=== PATIENT | male | born 1995 | race Two or more races ===

== ENCOUNTER 2019-05-28 11:46 | Emergency (ER) | payer OTHER ==
--- NOTE | 2019-05-28 12:12 | ER Document Report ---
ED General - General Chief Complaint: Allergic Reaction Stated Complaint: POSSIBLE ALLERGIC REACTION Time Seen by Provider: 05/28/19 12:09 TRAVEL OUTSIDE OF THE [place] IN LAST 30 DAYS: No - HPI Patient complains to provider of: Rash Notes: Normally healthy young man presents with diffuse urticaria over his lower extremities upper extremity's. This is now his third day of intermittent symptoms. Patient has been seen at [facility] week times for allergic reaction started Wednesday he was treated symptoms resolve he would go home and they will start up again. Most recently he was discharged from that emergency department approximately 10 hours ago went home. Patient now has diffuse urticaria. Difficulty breathing. No mucosal involvement, no pain in genitals. Denies nausea or vomiting. No hypoxia. No history of allergic reactions. - Related Data Allergies/Adverse Reactions: No Known Allergies Allergy (Verified 05/28/19 11:47) Past Medical History - Social History Smoking Status: Unknown if Ever Smoked Family History: None Review of Systems - Review of Systems Notes: REVIEW OF SYSTEMS: CONSTITUTIONAL: -fevers, -chills EENT: -eye pain, -difficulty swallowing, -nasal congestion CARDIOVASCULAR: -chest pain, -syncope. RESPIRATORY: -cough, -SOB GASTROINTESTINAL: -abdominal pain, -nausea, -vomiting, -diarrhea GENITOURINARY: -dysuria, -hematuria MUSCULOSKELETAL: -back pain, -neck pain SKIN: Diffuse urticaria HEMATOLOGIC: -easy bruising or bleeding. LYMPHATIC: -swollen, enlarged glands. NEUROLOGICAL: -altered mental status or loss of consciousness, -headache, - neurologic symptoms PSYCHIATRIC: -anxiety, -depression. ALL OTHER SYSTEMS REVIEWED AND NEGATIVE. Physical Exam - Vital signs Vitals: Temp Pulse Resp BP Pulse Ox 98.7 F 120 H 16 102/71 98 05/28/19 11:48 05/28/19 11:48 05/28/19 11:48 05/28/19 11:48 05/28/19 11:48 - Notes Notes: PHYSICAL EXAMINATION: GENERAL: Well-appearing, well-nourished and in no acute distress. HEAD: Atraumatic, normocephalic. EYES: Pupils equal round and reactive to light, injected conjunctiva ENT: nares patent, oropharynx clear without exudates. Moist mucous membranes. NECK: Normal range of motion, supple without lymphadenopathy LUNGS: Breath sounds clear to auscultation bilaterally and equal. No wheezes rales or rhonchi. HEART: Regular rate and rhythm without murmurs ABDOMEN: Soft, nontender, normoactive bowel sounds. No guarding, no rebound. No masses appreciated. EXTREMITIES: Normal range of motion, no pitting or edema. No cyanosis. NEUROLOGICAL: Cranial nerves grossly intact. Normal speech, normal gait. Normal sensory and motor exams. PSYCH: Normal mood, normal affect. SKIN: Diffuse urticaria over his upper extremities lower extremities and abdomen. Course - Re-evaluation Re-evalutation: 05/28/19 12:11 Ill-appearing young man presents with profound urticaria. Concerning for possible anaphylaxis. 05/28/19 16:22 Patient given IV epinephrine, steroids, diphenhydramine, famotidine. Patient observed in the department for 2 hours. Pick there is no change in patient's rash. At this point decision made to obtain labs. Shows leukocytosis and bandemia. Could be secondary to recent doses of steroids. Consult [facility], there is no dermatology available. Consult [facility], they also state there is no collection analyst communications equipment supervisor. Consult [facility]. Able to speak with the collection analyst communications equipment supervisor there. Given the patient is afebrile. Is mainly mucosal involvement and conjunctiva no other mucosal involvement, no difficulty b reathing or nausea vomiting. They recommend patient given strict return precautions discharged home on hydroxyzine for the itching. They will see the patient outpatient in their clinic tomorrow. That clinic phone number is [phone]. I also provide all of the patient's contact information to the collection analyst. this patients cell number is [phone] She is given strict return precautions of vomiting difficulty breathing any skin sloughing fever or mucosal involvement it is paramount that he get to the emergency department quickly - Vital Signs Vital signs: Temp Pulse Resp BP Pulse Ox 98.7 F 120 H 22 H 126/57 H 100 05/28/19 11:48 05/28/19 11:48 05/28/19 16:01 05/28/19 16:01 05/28/19 16:01 - Laboratory Result Diagrams: 05/28/19 13:40 05/28/19 13:40 Laboratory results interpreted by me: 07/07/19 07/07/19 07/07/19 13:40 13:40 13:40 WBC 16.5 H Seg Neutrophils % 87.5 H Lymphocytes % 10.2 L Monocytes % 1.4 L Absolute Neutrophils 14.4 H Sodium 135.7 L C-React Prot High Sens > 15 H Total Protein 6.1 L Critical Care Note - Critical Care Note Total time excluding time spent on procedures (mins): 38 Discharge - Discharge Clinical Impression: Rash Disposition: HOME, SELF-CARE Instructions: Viral Rash ([facility]) Additional Instructions: Call Dermatology @ [facility] [phone] Prescriptions: Hydroxyzine HCl [Atarax 50 mg Tablet] 50 mg PO TID PRN #15 tablet PRN Reason:
[2019-05-28] MEDS ORDERED: FAMOTIDINE 20 MG TABLET PO ONE (12:23)
[2019-05-28] MEDS ORDERED: DIPHENHYDRAMINE HCL 50 MG CAPSULE PO ONE (12:23)
[2019-05-28] MEDS ORDERED: PREDNISONE 20 MG TABLET PO ONE (12:23)
[2019-05-28] MEDS ORDERED: EPINEPHRINE INJ/PF 1 MG/1 ML AMPULE IM ONE (12:23)
[2019-05-28 13:50] LABS: ABSOLUTE BASOPHILS # (AUTO) 0.1 10^3/uL (0.0-0.2); ABSOLUTE EOSINOPHILS # (AUTO) 0.1 10^3/uL (0.0-0.6); ABSOLUTE LYMPHOCYTES (AUTO) 1.7 10^3/uL (0.5-4.7); ABSOLUTE MONOCYTES (AUTO) 0.2 10^3/uL (0.1-1.4); ABSOLUTE NEUT (AUTO) 14.4 10^3/uL (1.7-8.2); BASOPHILS % (AUTO) 0.3 % (0-2); EOSINOPHILS % (AUTO) 0.6 % (0-6); HEMATOCRIT 43.9 % (37.9-51.0); HEMOGLOBIN 14.8 g/dL (13.5-17.0); LYMPHOCYTES % (AUTO) 10.2 % (13-45); MEAN CORPUSCULAR HEMOGLOBIN 29.3 pg (27.0-33.4); MEAN CORPUSCULAR HGB CONC 33.7 g/dL (32.0-36.0); MEAN CORPUSCULAR VOLUME 87 fl (80-97); MONOCYTES % (AUTO) 1.4 % (3-13); PLATELET COUNT 379 10^3/uL (150-450); RED BLOOD COUNT 5.04 10^6/uL (4.35-5.55); RED CELL DISTRIBUTION WIDTH 12.5 % (11.5-14.0); SEGMENTED NEUTROPHILS % (AUTO) 87.5 % (42-78); TOTAL CELLS COUNTED % (AUTO) 100 %; WHITE BLOOD COUNT 16.5 10^3/uL (4.0-10.5)
[2019-05-28 14:12] LABS: ALANINE AMINOTRANSFERASE 32 U/L (21-72); ALBUMIN 3.5 g/dL (3.5-5.0); ALKALINE PHOSPHATASE 54 U/L (38-126); ANION GAP 9 (5-19); ASPARTATE AMINO TRANSFERASE 49 U/L (17-59); BILIRUBIN,DIRECT 0.3 mg/dL (0.0-0.4); BILIRUBIN,TOTAL 0.9 mg/dL (0.2-1.3); BLOOD UREA NITROGEN 13 mg/dL (7-20); CALCIUM 8.8 mg/dL (8.4-10.2); CARBON DIOXIDE 26 mmol/L (22-30); CHLORIDE 101 mmol/L (98-107); GLUCOSE 108 mg/dL (75-110); POTASSIUM 4.3 mmol/L (3.6-5.0); SODIUM 135.7 mmol/L (137-145); TOTAL PROTEIN 6.1 g/dL (6.3-8.2)
[2019-05-28 14:37] LABS: ERYTHROCYTE SEDIMENTATION RATE 13 mm/hr (0-15)
[2019-05-28] MEDS ORDERED: NORMAL SALINE 1000 ML 1,000 ML IV ONE (15:09)
[2019-05-28] MEDS ORDERED: HYDROXYZINE HCL 10 MG TABLET PO ONE (15:13)
[2019-05-28 16:19] VITALS: BP 126/57
== END 2019-05-28 16:25 | disposition home or self-care (01) ==
LOC: ER 11:46
DX: L50.9 Urticaria, unspecified (principal); R06.00 Dyspnea, unspecified; D72.825 Bandemia
CPT/HCPCS: 99291; 96372; 96360; 36415; 85025; 85652; 80076; 80048; 86141; J0171; J7512; J7030

== ENCOUNTER 2019-05-29 01:10 | Emergency (ER) | payer OTHER ==
[2019-05-29] MEDS ORDERED: FAMOTIDINE INJ/PF 20 MG/2 ML SDV IV ONE (03:02)
--- NOTE | 2019-05-29 04:22 | RADIOLOGY REPORT (SQ) ---
EXAM DESCRIPTION: CT ABDOMEN PELVIS WITHOUT IV CONTRAST COMPLETED DATE/TME: 05/29/2019 03:02 CLINICAL HISTORY: 23 years Male, abdominal pain Comparison: None. Technique: No contrast. Coronal and sagittal reformat. This exam was performed according to our departmental dose-optimization program, which includes automated exposure control, adjustment of the mA and/or kV according to patient size and/or use of iterative reconstruction technique.[facility]: Dose Right [facility]: CareDose [facility]: Dose Right [facility]: Teradose 4D [facility]: [employer] D[employer]le LIMITATIONS: None Findings: Minimal free fluid at the right anterior pelvis. Appendix is not discerned. If there is clinical concern for possible appendicitis, recommend further evaluation with IV and oral contrast. Possible vicarious gallbladder contrast. No gross evidence of gallbladder inflammation or hepatobiliary obstruction. No bowel obstruction. No hydronephrosis or hydroureter. No renal/ureteral stone. No evidence of abdominal aortic aneurysm. Unenhanced lower thorax, abdominopelvic structures, and musculoskeleton appear otherwise grossly unremarkable. Impression: Minimal free fluid at the right anterior pelvis. Appendix is not discerned. Consider further CT evaluation or surveillance with IV and delayed oral contrast especially if there is clinical concern for possible appendicitis..
[2019-05-29] MEDS ORDERED: NORMAL SALINE 1000 ML 1,000 ML IV ONE (04:43)
[2019-05-29] MEDS ORDERED: FENTANYL CITRATE INJ/PF 100 MCG/2 ML AMPUL IV ONE (04:43)
--- NOTE | 2019-05-29 04:45 | ER Document Report ---
ED General - General Chief Complaint: Hives Stated Complaint: ABDOMINAL PAIN Time Seen by Provider: 05/29/19 02:50 Notes: Patient is a pleasant 23-year-old male who is been having hives-like rash and reaction now for several days. He was seen several days ago by physician and started prednisone. He said the steroids made his stomach hurt and therefore he stopped them. He then came to our ER yesterday and was seen by Dr. Roberto. Dr. tian did a work-up. He had normal ESR at that time. He did have a leukocytosis without bandemia. This is likely related to steroid use. He did consul and speak with dermatology at [facility] who requested the patient come to the outpatient clinic on Wednesday which is now today. Patient said he presented back to the ER because after receiving a steroid injection from our ED he still having abdominal pain again. He feels that the steroids themselves cause abdominal pain. He says that the rash has not worsened. He said he did take some Zyrtec which actually seemed to help the rash some. He denies any facial swelling. No tongue swelling. No difficulty breathing. No fevers. No vomiting or diarrhea. No other complaints at this time. No recent travel outside the country. TRAVEL OUTSIDE OF THE [place] IN LAST 30 DAYS: No - Related Data Allergies/Adverse Reactions: No Known Allergies Allergy (Verified 05/28/19 11:47) Past Medical History - Social History Smoking Status: Former Smoker Frequency of alcohol use: Occasional Drug Abuse: None Family History: None Patient has suicidal ideation: No Patient has homicidal ideation: No Renal/ Medical History: Denies: Hx Peritoneal Dialysis Review of Systems - Review of Systems Notes: My Normal Review Basic REVIEW OF SYSTEMS: CONSTITUTIONAL : Denies fever, chills, or sweats. Denies recent illness. EENT: Denies eye, ear, throat, or mouth pain or symptoms. Denies nasal or sinus congestion. CARDIOVASCULAR: Denies chest pain. RESPIRATORY: Denies cough, cold, or chest congestion. Denies shortness of breath, difficulty breathing, or wheezing. GASTROINTESTINAL: Central abdominal pain. Some nausea. No vomiting. GENITOURINARY: Denies difficulty urinating, painful urination, burning, frequency, or blood in urine. MUSCULOSKELETAL: Denies neck or back pain or joint pain or swelling. SKIN: Diffuse hives-like rash. NEUROLOGICAL: Denies altered mental status or loss of consciousness. Denies headache. Denies weakness or paralysis or loss of use of either side. Denies problems with gait or speech. Denies sensory or motor loss. ALL OTHER SYSTEMS REVIEWED AND NEGATIVE. Physical Exam - Vital signs Vitals: Temp Pulse Resp BP Pulse Ox 98.4 F 113 H 18 152/68 H 98 05/29/19 01:18 05/29/19 01:18 05/29/19 01:18 05/29/19 01:18 05/29/19 01:18 - Notes Notes: General Appearance: Well nourished, alert, cooperative, no acute distress, moderate obvious discomfort. Vitals: reviewed, See vital signs table. Head: Mild swelling around patient's eyelids. Remainder of face is nonswollen. He does have hives over the face. Eyes: PERRL, EOMI, Conjuctiva clear Mouth: No decreasd moisture Throat: No tonsillar inflammation, No airway obstruction, No lymphadenopathy Lungs: No wheezing, No rales, No rhonci, No accessory muscle use, good air exchange bilaterally. Heart: Normal rate, Regular rythm, No murmur, no rub Abdomen: Normal BS, soft, No rigidity, mild to moderate viridiana-umbilical abdominal tenderness to palpation., No guarding, no rebound, no abdominal masses, no organomegaly Extremities: strength 5/5 in all extremities, good pulses in all extremities, no swelling or tenderness in the extremities, no edema. Skin: warm, dry, appropriate color, Fuhs hives-like rash that spares the palms and soles. It is blanchable. Is not painful to palpation. It is pruritic. Neuro: speech clear, oriented x 3, normal affect, responds appropriately to questions. Course - Re-evaluation Re-evalutation: 05/29/19 04:[address] scan did not show any concerning findings. He still having some abdominal pain but seems as if his home is having abdominal cramping. He says before the IV fluids actually helped him. I will give him some IV fluids. Order some pain medicine. I will recheck his labs to make sure he does not have any form of electrolyte abnormality. Patient continued to clinically look okay except for the diffuse rash. Rash continues to be blanchable. Is not painful t o palpation. 05/29/19 06:37 The exact cause of his rash is still 100% clear. Patient does not want to do steroids as he says each time he is received steroids developed abdominal pain. Therefore did not give him a dose of steroids. I did give him a dose of Pepcid. He had already taken Zyrtec. He said the Pepcid did help some. Did obtain a CT scan of his abdomen to just does not make sense that an injection of steroids because abdominal pain. CT scan of the abdomen just shows a small amount of fluid in the pelvis but otherwise did not show any concerning findings. I am not concerned for appendicitis. He did have leukocytosis yesterday. His repeat CBC shows that his white blood cell count is almost completely normalized. His chemistry panel shows no concerning findings. I informed patient importance of actually going to [facility] and following up with the dermatology clinic today. Patient told me that he did not think he would go and that he would probably delay the appointment as his family and friends are working today and he did not want to bother them with driving him up there. I informed him that it is extremely important that he goes to his appointment as this rash has been ongoing now for a while and he he should take the opportunity that he has been given to get treatment. I informed him that this is his opportunity to get a full diagnosis and hopefully an effective treatment for what is causing his rash. Patient says that he would reconsider trying to make the appointment today. I encouraged him return to ER if he has any difficulty breathing, difficulty swallowing, fevers, or worsening abdominal pain. Patient agrees with plan and will be discharged home. Dictation of this chart was performed using voice recognition software; therefore, there may be some unintended grammatical errors. - Vital Signs Vital signs: Temp Pulse Resp BP Pulse Ox 98.4 F 113 H 18 152/68 H 98 05/29/19 01:18 05/29/19 01:18 05/29/19 01:18 05/29/19 01:18 05/29/19 01:18 - Laboratory Result Diagrams: 05/29/19 05:15 05/29/19 05:15 Laboratory results interpreted by me: 05/29/19 05/29/19 05:15 05:15 WBC 11.2 H Hgb 13.3 L Seg Neutrophils % 89.8 H Lymphocytes % 9.0 L Monocytes % 1.0 L Absolute Neutrophils 10.1 H Sodium 134.0 L Glucose 148 H Calcium 7.6 L Discharge - Discharge Clinical Impression: Rash Abdominal pain Qualifiers: Abdominal location: unspecified location Qualified Code(s): R10.9 - Unspecified abdominal pain Condition: Stable Disposition: HOME, SELF-CARE Additional Instructions: Please try to make your dermatology appointment today. Please talk to family or friends who can potentially bring you. It really is important that you make your appointment. I have written a work note for today. Please continue take your Zyrtec as prescribed. Please return to the ER if you have difficulty breathing, facial swelling, difficulty swallowing, fevers, or worsening of your symptoms. Forms: Return to Work
[2019-05-29 05:37] LABS: ABSOLUTE MONOCYTES (AUTO) 0.1 10^3/uL (0.1-1.4); ABSOLUTE NEUT (AUTO) 10.1 10^3/uL (1.7-8.2); BASOPHILS % (AUTO) 0.1 % (0-2); EOSINOPHILS % (AUTO) 0.1 % (0-6); HEMATOCRIT 39.3 % (37.9-51.0); HEMOGLOBIN 13.3 g/dL (13.5-17.0); MEAN CORPUSCULAR HEMOGLOBIN 29.6 pg (27.0-33.4); MEAN CORPUSCULAR HGB CONC 33.9 g/dL (32.0-36.0); MEAN CORPUSCULAR VOLUME 87 fl (80-97); PLATELET COUNT 338 10^3/uL (150-450); RED CELL DISTRIBUTION WIDTH 12.5 % (11.5-14.0); SEGMENTED NEUTROPHILS % (AUTO) 89.8 % (42-78); TOTAL CELLS COUNTED % (AUTO) 100 %; WHITE BLOOD COUNT 11.2 10^3/uL (4.0-10.5)
[2019-05-29 05:56] LABS: BLOOD UREA NITROGEN 13 mg/dL (7-20); CALCIUM 7.6 mg/dL (8.4-10.2); CARBON DIOXIDE 28 mmol/L (22-30); CHLORIDE 101 mmol/L (98-107); GLUCOSE 148 mg/dL (75-110); POTASSIUM 3.8 mmol/L (3.6-5.0)
[2019-05-29 06:01] LABS: ANION GAP 5 (5-19)
[2019-05-29 06:39] VITALS: BP 115/60
== END 2019-05-29 06:48 | disposition home or self-care (01) ==
LOC: ER 01:10
DX: R21 Rash and other nonspecific skin eruption (principal); L50.9 Urticaria, unspecified; R10.9 Unspecified abdominal pain; R11.0 Nausea; R18.8 Other ascites; Z87.891 Personal history of nicotine dependence
CPT/HCPCS: 99284; 96361; 96374; 96375; 36415; 85025; 80048; 74176; J3010; J7030; S0028